=== PATIENT | male | born 1975 | race Caucasian/White ===

== ENCOUNTER 2018-07-07 06:14 | Outpatient (CLI) | payer OTHER ==
[2018-07-07] MEDS ORDERED: PROHANCE 279.3MG/ML 5ML VIAL (A9576) As Ordered (07:26)
[2018-07-07] MEDS ORDERED: CONRAY-43 43% 50ML VIAL (Q9960) As Ordered (07:27)
[2018-07-21] MEDS ORDERED: CONRAY-43 43% 50ML VIAL (Q9960) As Ordered (07:03)
[2018-07-21] MEDS ORDERED: PROHANCE 279.3MG/ML 5ML VIAL (A9576) As Ordered (07:03)
== END 2018-07-21 ==
LOC: M RADPRO 06:14
DX: M75.82 Other shoulder lesions, left shoulder (principal); S43.431A Superior glenoid labrum lesion of right shoulder, initial encounter; Y92.89 Other specified places as the place of occurrence of the external cause; Y93.89 Activity, other specified; M19.011 Primary osteoarthritis, right shoulder; Y99.8 Other external cause status
CPT/HCPCS: 23350

== ENCOUNTER → 2018-07-19 | Outpatient (CLI) | payer OTHER | LOC: M RAD 10:52 | DX: Z98.890 Other specified postprocedural states (principal) | CPT/HCPCS: 70250 ==